=== PATIENT | male | born 1935 | race African-American/Black ===

== ENCOUNTER 2018-10-01 12:32 | Emergency (ER) | payer MEDICARE, OTHER ==
[~2018-10-01] VITALS: Ht 177.8 cm; Wt 93.0 kg
[2018-10-01 17:33] VITALS: BP 109/62
== END 2018-10-01 17:34 | disposition home or self-care (01) ==
LOC: ER 13:36
DX: S92.322A Displaced fracture of second metatarsal bone, left foot, initial encounter for closed fracture (principal); S92.332A Displaced fracture of third metatarsal bone, left foot, initial encounter for closed fracture; S92.342A Displaced fracture of fourth metatarsal bone, left foot, initial encounter for closed fracture; S82.892A Other fracture of left lower leg, initial encounter for closed fracture; F17.200 Nicotine dependence, unspecified, uncomplicated; N18.6 End stage renal disease; Z99.2 Dependence on renal dialysis; W01.0XXA Fall on same level from slipping, tripping and stumbling without subsequent striking against object, initial encounter; Y93.89 Activity, other specified; Y92.89 Other specified places as the place of occurrence of the external cause
CPT/HCPCS: 29515; 73630; 99283

== ENCOUNTER 2019-09-27 09:16 | Emergency (ER) | payer MEDICARE ==
[~2019-09-27] VITALS: Ht 182.9 cm; Wt 82.0 kg
[2019-09-27 10:41] LABS: HEMATOCRIT. 39.1 % (42.0-52.0); HEMOGLOBIN. 12.3 g/dL (14.0-18.0); MEAN CORPUSCULAR HEMOGLOBIN 25.5 pg (28.0-32.0); MEAN PLATELET VOLUME 8.5 fl (7.4-10.4); PLATELET 87 x1000/uL (130-400); RED BLOOD CELL COUNT 4.82 mill/uL (4.7-6.1); RED CELL DISTRIBUTION WIDTH 18.1 % (11.6-14.6)
[2019-09-27 10:44] LABS: CHLORIDE 99 mEq/L (98-107)
[2019-09-27 11:12] LABS: ATYPICAL LYMPHOCYTES 1
[2019-09-27 11:13] LABS: PLATELET ESTIMATE DECREASED
[2019-09-27] MEDS ORDERED: ASPIRIN 81MG TABLET PO ONE (11:45)
[2019-09-27 16:13] VITALS: BP 113/56
== END 2019-09-27 16:46 | disposition short-term general hospital (02) ==
LOC: ER 09:22 → CANBEDREQ 17:33
DX: R53.1 Weakness (principal); N18.6 End stage renal disease; Z99.2 Dependence on renal dialysis; F17.200 Nicotine dependence, unspecified, uncomplicated; Z86.73 Personal history of transient ischemic attack (TIA), and cerebral infarction without residual deficits
CPT/HCPCS: 36415; 71045; 80053; 85025; 93005; 99285

== ENCOUNTER 2019-10-27 14:11 | Inpatient (IN) | payer MEDICARE ==
[~2019-10-27] VITALS: Ht 172.7 cm; Wt 70.3 kg
[2019-10-27] MEDS ORDERED: SODIUM CHLORIDE 0.9% 1,000 ML IV ONE (15:17)
[2019-10-27] MEDS ORDERED: ONDANSETRON HCL 4MG/2ML INJ IV STA (15:17)
[2019-10-27 16:05] LABS: BASOPHILS % 1.2 % (0.0-2.0); EOSINOPHILS % 0.9 % (0.0-5.0); HEMOGLOBIN. 12.1 g/dL (14.0-18.0); MEAN CORPUSCULAR VOLUME 78.2 fL (80.0-94.0); MEAN PLATELET VOLUME 7.4 fl (7.4-10.4); NEUTROPHILS % 75.9 % (40.0-76.0); PLATELET 194 x1000/uL (130-400); RED BLOOD CELL COUNT 4.86 mill/uL (4.7-6.1); RED CELL DISTRIBUTION WIDTH 17.8 % (11.6-14.6)
[2019-10-27 16:06] LABS: CHLORIDE 93 mEq/L (98-107)
[2019-10-27 16:10] LABS: ETHANOL BLOOD < 10 mg/dL
[2019-10-27 16:11] LABS: PARTIAL THROMBOPLASTIN TIME 30.4 sec (23.4-31.0); PROTHROMBIN TIME 11.3 sec (9.6-11.0)
[2019-10-27 16:14] LABS: CREATINE KINASE 184 IU/L (39-308)
[2019-10-27] MEDS ORDERED: PIPERACILLIN/TAZ 3.375G PREMIX 50 ML IV ONE (17:00)
[2019-10-27] MEDS ORDERED: VANCOMYCIN 1 G PREMIX 200 ML IV SCH (17:00)
[2019-10-27 23:30] VITALS: BP 140/52
[2019-10-28] MEDS ORDERED: CARB200T6 PO (00:40)
[2019-10-28] MEDS ORDERED: FOLI-43 PO (00:40)
[2019-10-28] MEDS ORDERED: FEBU40TA PO (00:40)
[2019-10-28] MEDS ORDERED: GABA300S PO (00:40)
[2019-10-28] MEDS ORDERED: FERR210T PO (00:40)
[2019-10-28] MEDS ORDERED: ATOR20TA65 PO (00:40)
[2019-10-28] MEDS ORDERED: APIX2.5T PO (00:40)
[2019-10-28] MEDS ORDERED: SEVE800T8 MT (00:40)
[2019-10-28] MEDS ORDERED: GABA-531 PO (00:43)
[2019-10-28 04:00] VITALS: BP 158/58
[2019-10-28 07:15] LABS: BASOPHILS % 0.7 % (0.0-2.0); EOSINOPHILS % 3.8 % (0.0-5.0); HEMATOCRIT. 31.6 % (42.0-52.0); HEMOGLOBIN. 10.1 g/dL (14.0-18.0); LYMPHOCYTES % 25.6 % (20.0-50.0); MEAN CORPUSCULAR HEMOGLOBIN 24.8 pg (28.0-32.0); MEAN CORPUSCULAR VOLUME 77.8 fL (80.0-94.0); MEAN PLATELET VOLUME 7.1 fl (7.4-10.4); MONOCYTES % 10.2 % (2.0-8.0); NEUTROPHILS % 59.7 % (40.0-76.0); PLATELET 176 x1000/uL (130-400); RED BLOOD CELL COUNT 4.06 mill/uL (4.7-6.1); RED CELL DISTRIBUTION WIDTH 17.1 % (11.6-14.6)
[2019-10-28 07:36] LABS: PHOSPHORUS 3.3 mg/dL (2.5-4.9)
[2019-10-28 08:00] VITALS: BP 138/53
[2019-10-28] MEDS: SEVELAMER CARBONATE 800 MG TABLET PO SCH ×3 (09:06→16:43)
[2019-10-28] MEDS: APIXABAN 2.5 MG TABLET PO SCH ×2 (09:07→16:43)
[2019-10-28 12:00] VITALS: BP 131/54
[2019-10-28 14:53] LABS: BG BASE EXCESS 9.1 mmol/L (-2.0-2.0); BG CARBOXYHEMOGLOBIN 0.3 % (0.5-1.5); BG DEOXYHEMOGLOBIN 7.8 % (0.0-5.0); BG FRACTION INSPIRED OXYGEN 21; BG HCO3 ACT 33.2 mmol/L (22.0-26.0); BG OXYGEN SATURATION 92.2 % (92.0-98.5); BG OXYHEMOGLOBIN 91.9 % (94.0-97.0); BG PCO2 43.4 mmHg (35.0-45.0); BG PH 7.501 (7.350-7.450); BG PO2 62.3 mmHg (75.0-100.0); BG SAMPLE SITE RIGHT BRACHIAL; BG TOTAL HEMOGLOBIN 10.4 g/dL (12.0-18.0); BG VENT MODE ROOM AIR
[2019-10-28 16:00] VITALS: BP 105/44
[2019-10-28 20:00] VITALS: BP 120/47
[2019-10-28] MEDS ORDERED: GABAPENTIN 300MG CAPSULE PO SCH (21:00)
[2019-10-29 00:27] VITALS: BP 159/67
[2019-10-29 04:00] VITALS: BP 174/76
[2019-10-29 07:49] LABS: BASOPHILS % 1.1 % (0.0-2.0); EOSINOPHILS % 5.9 % (0.0-5.0); HEMATOCRIT. 33.7 % (42.0-52.0); HEMOGLOBIN. 10.7 g/dL (14.0-18.0); LYMPHOCYTES % 30.6 % (20.0-50.0); MEAN CORPUSCULAR HEMOGLOBIN 24.9 pg (28.0-32.0); MEAN CORPUSCULAR VOLUME 78.5 fL (80.0-94.0); MEAN PLATELET VOLUME 6.9 fl (7.4-10.4); MONOCYTES % 10.9 % (2.0-8.0); NEUTROPHILS % 51.5 % (40.0-76.0); PLATELET 187 x1000/uL (130-400); RED BLOOD CELL COUNT 4.29 mill/uL (4.7-6.1); RED CELL DISTRIBUTION WIDTH 17.6 % (11.6-14.6)
[2019-10-29 08:00] VITALS: BP 154/59
[2019-10-29] MEDS: SEVELAMER CARBONATE 800 MG TABLET PO SCH ×3 (09:33→22:50)
[2019-10-29] MEDS: APIXABAN 2.5 MG TABLET PO SCH ×2 (09:33→22:49)
[2019-10-29 12:00] VITALS: BP 150/63
[2019-10-29] MEDS ORDERED: ACETAMINOPHEN 650MG SUPP PR PRN (12:45)
[2019-10-29] MEDS ORDERED: LEVOFLOXACIN 750MG PREMIX 150 ML IV NR (14:00)
[2019-10-29] MEDS ORDERED: IPRATROPIUM/ALBUTEROL 0.5-3(2.5)MG/3ML NEB HHN PRN (14:15)
[2019-10-29] MEDS ORDERED: HYDRALAZINE 20MG/ML VIAL IV PRN (14:15)
[2019-10-29] MEDS ORDERED: LACTULOSE 20G/30ML UDC PO PRN (14:15)
[2019-10-29] MEDS ORDERED: ONDANSETRON HCL 4MG/2ML INJ IV PRN (14:15)
[2019-10-29 16:00] VITALS: BP 157/78
[2019-10-29 20:00] VITALS: BP 130/61
[2019-10-29] MEDS: ACETAMINOPHEN 325MG TABLET PO PRN (20:42)
[2019-10-30] VITALS: BP 97/48
[2019-10-30 04:00] VITALS: BP 102/46
[2019-10-30 07:00] LABS: BASOPHILS % 1.3 % (0.0-2.0); EOSINOPHILS % 4.4 % (0.0-5.0); HEMATOCRIT. 34.8 % (42.0-52.0); HEMOGLOBIN. 11.1 g/dL (14.0-18.0); LYMPHOCYTES % 26.1 % (20.0-50.0); MEAN CORPUSCULAR VOLUME 78.2 fL (80.0-94.0); MEAN PLATELET VOLUME 6.6 fl (7.4-10.4); MONOCYTES % 10.9 % (2.0-8.0); NEUTROPHILS % 57.3 % (40.0-76.0); PLATELET 163 x1000/uL (130-400); RED BLOOD CELL COUNT 4.45 mill/uL (4.7-6.1); RED CELL DISTRIBUTION WIDTH 17.6 % (11.6-14.6)
[2019-10-30 08:00] VITALS: BP 127/52
[2019-10-30] MEDS: APIXABAN 2.5 MG TABLET PO SCH (08:46)
[2019-10-30] MEDS: SEVELAMER CARBONATE 800 MG TABLET PO SCH ×3 (08:46→18:46)
[2019-10-30 12:00] VITALS: BP 94/40
[2019-10-30 16:00] VITALS: BP 122/51
[2019-10-30 20:00] VITALS: BP 119/51
[2019-10-31] VITALS: BP 121/61
[2019-10-31 04:00] VITALS: BP 122/53
[2019-10-31 06:30] LABS: BASOPHILS % 0.6 % (0.0-2.0); EOSINOPHILS % 5.7 % (0.0-5.0); HEMATOCRIT. 35.2 % (42.0-52.0); LYMPHOCYTES % 33.8 % (20.0-50.0); MEAN CORPUSCULAR HEMOGLOBIN 24.4 pg (28.0-32.0); MEAN CORPUSCULAR VOLUME 78.4 fL (80.0-94.0); MEAN PLATELET VOLUME 6.9 fl (7.4-10.4); NEUTROPHILS % 49.9 % (40.0-76.0); PLATELET 185 x1000/uL (130-400); RED BLOOD CELL COUNT 4.49 mill/uL (4.7-6.1); RED CELL DISTRIBUTION WIDTH 17.6 % (11.6-14.6)
[2019-10-31 08:00] VITALS: BP 141/43
[2019-10-31] MEDS: SEVELAMER CARBONATE 800 MG TABLET PO SCH ×3 (08:36→18:47)
[2019-10-31 12:00] VITALS: BP 100/50
[2019-10-31] MEDS ORDERED: LEVOFLOXACIN 500MG PREMIX 100 ML IV SCH (12:30)
[2019-10-31] MEDS: FEBUXOSTAT 40 MG TABLET PO SCH (13:51)
[2019-10-31 16:00] VITALS: BP 100/50
[2019-10-31] MEDS ORDERED: CEFTRIAXONE 1 G PREMIX 50 ML IV SCH (18:00)
[2019-10-31] MEDS ORDERED: VANCOMYCIN 1,000 MG in DEXT 5% WATER 250 ML IV NR (18:00)
[2019-10-31 20:00] VITALS: BP 129/45
[2019-11-01] VITALS: BP 125/48
[2019-11-01] MEDS: HYDROCODONE/ACETAMINOPHEN 5/325MG TABLET PO PRN ×2 (01:15→11:20)
[2019-11-01] MEDS: ACETAMINOPHEN 325MG TABLET PO PRN (02:56)
[2019-11-01 04:00] VITALS: BP 107/40
[2019-11-01 05:38] LABS: BASOPHILS % 0.8 % (0.0-2.0); EOSINOPHILS % 3.6 % (0.0-5.0); HEMATOCRIT. 33.6 % (42.0-52.0); HEMOGLOBIN. 10.7 g/dL (14.0-18.0); MEAN CORPUSCULAR VOLUME 78.3 fL (80.0-94.0); MEAN PLATELET VOLUME 6.6 fl (7.4-10.4); MONOCYTES % 4.5 % (2.0-8.0); NEUTROPHILS % 78.1 % (40.0-76.0); PLATELET 138 x1000/uL (130-400); RED BLOOD CELL COUNT 4.29 mill/uL (4.7-6.1); RED CELL DISTRIBUTION WIDTH 17.7 % (11.6-14.6)
[2019-11-01 08:00] VITALS: BP 95/43
[2019-11-01] MEDS: SEVELAMER CARBONATE 800 MG TABLET PO SCH ×2 (08:08→13:01)
[2019-11-01] MEDS: FEBUXOSTAT 40 MG TABLET PO SCH (08:08)
[2019-11-01 10:35] VITALS: BP 121/43
[2019-11-01] MEDS ORDERED: LIDOCAINE HCL 1% 20ML VIAL (Pyxis) INJ ONE (11:24)
[2019-11-01] MEDS ORDERED: SODIUM BICARBONATE 4% (2.4MEQ) 5ML VIAL IV ONE (11:24)
[2019-11-01 11:40] VITALS: BP 121/43
[2019-11-01] MEDS ORDERED: VANCOMYCIN 500 MG PREMIX 100 ML IV SCH (12:00)
== END 2019-11-01 15:30 | DRG 193 ==
LOC: ER 14:47 → CANBEDREQ 19:01 → ENRESERV 22:08 → 7EST 23:25 → 7WST 10-28 22:15 → 5WST 10-29 18:14 → 7WST 10-29 18:27
PROVIDERS: ADMIT Internal Medicine; ATTEND Internal Medicine
PROC: 5A1D70Z Performance of Urinary Filtration, Intermittent, Less than 6 Hours Per Day (ICD-10-PCS; 2019-10-28)
PROC: 5A1D70Z Performance of Urinary Filtration, Intermittent, Less than 6 Hours Per Day (ICD-10-PCS; 2019-10-29)
PROC: 5A1D70Z Performance of Urinary Filtration, Intermittent, Less than 6 Hours Per Day (ICD-10-PCS; 2019-10-31)
PROC: 02HV33Z Insertion of Infusion Device into Superior Vena Cava, Percutaneous Approach (ICD-10-PCS; principal; 2019-11-01)
PROC: B5181ZA Fluoroscopy of Superior Vena Cava using Low Osmolar Contrast, Guidance (ICD-10-PCS; 2019-11-01)
PROC: B548ZZA Ultrasonography of Superior Vena Cava, Guidance (ICD-10-PCS; 2019-11-01)
PROC: 5A1D70Z Performance of Urinary Filtration, Intermittent, Less than 6 Hours Per Day (ICD-10-PCS; 2019-11-01)
DX: J18.9 Pneumonia, unspecified organism (principal); N18.6 End stage renal disease; M46.22 Osteomyelitis of vertebra, cervical region; M47.12 Other spondylosis with myelopathy, cervical region; I12.0 Hypertensive chronic kidney disease with stage 5 chronic kidney disease or end stage renal disease; I69.354 Hemiplegia and hemiparesis following cerebral infarction affecting left non-dominant side; E46 Unspecified protein-calorie malnutrition; G95.29 Other cord compression; I13.2 Hypertensive heart and chronic kidney disease with heart failure and with stage 5 chronic kidney disease, or end stage renal disease; G90.8 Other disorders of autonomic nervous system; M48.02 Spinal stenosis, cervical region; M46.42 Discitis, unspecified, cervical region; E87.70 Fluid overload, unspecified; E78.5 Hyperlipidemia, unspecified; R06.03 Acute respiratory distress; D64.9 Anemia, unspecified; R26.89 Other abnormalities of gait and mobility; I95.9 Hypotension, unspecified; F17.210 Nicotine dependence, cigarettes, uncomplicated; E78.00 Pure hypercholesterolemia, unspecified; E83.41 Hypermagnesemia; E83.52 Hypercalcemia; I44.7 Left bundle-branch block, unspecified; I50.9 Heart failure, unspecified; R29.6 Repeated falls; Z99.2 Dependence on renal dialysis; Z79.01 Long term (current) use of anticoagulants; Z99.3 Dependence on wheelchair; I25.2 Old myocardial infarction; Z74.01 Bed confinement status; Z79.899 Other long term (current) drug therapy; Z91.81 History of falling; Z68.23 Body mass index [BMI] 23.0-23.9, adult; Z11.59 Encounter for screening for other viral diseases
CPT/HCPCS: 36415; 36573; 36600; 71045; 72141; 72146; 72148; 73030; 76937; 80048; 80053; 80076; 80320; 82375; 82550; 82553; 82805; 83605; 83735; 83880; 84100; 84145; 84443; 84484; 84550; 85025; 85651; 86140; 87635; 87804; 93005; 93306; 93880; 93970; 96374; 97162; 97530; 99291; C1725; J0696; J1956; J2405; J2543; J3370; J3490; J7030; J7060; G0480

== ENCOUNTER 2020-03-02 14:43 | Emergency (ER) | payer MEDICARE ==
[~2020-03-02] VITALS: Ht 182.9 cm; Wt 91.0 kg
[~2020-03-02 14:43] MED LIST: APIX2.5T PO; ATOR20TA65 PO; CARB200T6 PO; FEBU40TA PO; FERR210T PO; FOLI-43 PO; GABA-531 PO; SEVE800T8 MT
[2020-03-02 15:37] LABS: BASOPHILS % 0.6 % (0.0-2.0); EOSINOPHILS % 0.9 % (0.0-5.0); HEMATOCRIT. 32.6 % (42.0-52.0); HEMOGLOBIN. 10.4 g/dL (14.0-18.0); LYMPHOCYTES % 23.7 % (20.0-50.0); MEAN CORPUSCULAR HEMOGLOBIN 24.1 pg (28.0-32.0); MEAN CORPUSCULAR VOLUME 75.2 fL (80.0-94.0); MEAN PLATELET VOLUME 7.1 fl (7.4-10.4); MONOCYTES % 9.8 % (2.0-8.0); PLATELET 123 x1000/uL (130-400); RED BLOOD CELL COUNT 4.33 mill/uL (4.7-6.1); RED CELL DISTRIBUTION WIDTH 16.5 % (11.6-14.6)
[2020-03-02 15:44] LABS: CHLORIDE 105 mEq/L (98-107)
[2020-03-02] MEDS ORDERED: DEXTROSE 50% WATER 50ML SYRINGE IV ONE (16:30)
[2020-03-02] MEDS ORDERED: INSULIN REGULAR (HUMULIN R) 300UNITS/3ML IV ONE (16:30)
[2020-03-02] MEDS ORDERED: CALCIUM GLUCONATE 1,000 MG in DEXT 5% WATER 100 ML IV ONE (16:30)
[2020-03-02 20:46] VITALS: BP 147/54
== END 2020-03-02 21:02 | disposition short-term general hospital (02) ==
LOC: ER 14:43 → CANBEDREQ 21:20
DX: E87.5 Hyperkalemia (principal); N18.6 End stage renal disease; Z99.2 Dependence on renal dialysis; E78.00 Pure hypercholesterolemia, unspecified; Z86.73 Personal history of transient ischemic attack (TIA), and cerebral infarction without residual deficits
CPT/HCPCS: 36415; 71045; 80053; 82962; 83605; 85025; 87040; 93005; 96365; 96375; 99285; J0610; J1815; J7060